=== PATIENT | male | born 1975 | race Caucasian/White ===

== ENCOUNTER 2019-03-08 07:13 | Emergency (ER) | payer BC, SELFPAY ==
[2019-03-08 07:16] VITALS: BP 163/96; PULSE 79; RESP 14; TEMP 36.2; O2SAT 97
--- NOTE | 2019-03-08 07:33 | W.ED.GENAD ---
Discharge Plan Disposition Patient Disposition: HOME Discharge Details Chief Complaint: EyeProblem Clinical Impression: Corneal abrasion, left Primary Care Provider: Gil Mendoza ED Provider: Gume Sy Home Meds and New Rx's Prescriptions: New erythromycin 5 mg/gram (0.5 %) ointment 0.5 inch OP Q4H Qty: 3.5 RF: 0 Discharge Instructions Instructions: Corneal Abrasion (ED) Additional Instructions: Please contact your eye care transition manager to arrange follow-up. Call today. Return to the ER for any worsening or new concerning symptoms. Referrals: [facility] [Outside] Discharge Data Discharge Date/Time-TO BE ENTERED AT DEPARTURE: 03/08/19 08:20 Medical Decision Making 43-year-old male here with sensation of foreign body left eye. Recently itching his eye with seasonal allergies. Patient with significant discomfort on arrival. Tetracaine applied to left eye and patient noted to have complete resolution of discomfort. Visual acuity normal. Flourescein stain applied and cornea examined with Clarke lamp - area of uptake noted 1:00 concerning for corneal abrasion. Plan to treat with erythromycin ointment and follow-up with optho. Advised call today to arrange timely follow-up tomorrow. HPI General Mode of arrival: ambulatory. Date/Time Provider Initiated Documentation: 03/08/19 07:23. Limitations to Documentation: no limitations. Information obtained by: patient. HPI Narrative: 43-year-old male presents with chief complaint of sensation of foreign body in his left eye that started last night. Patient has significant discomfort. Worse when he moves his eye around. No associated visual changes. Patient notes seasonal allergies and itching his eyes recently. Patient notes that he does not wear contact lenses. No recent metal grinding. Related Data Home Medications Medication Instructions Recorded Confirmed erythromycin 0.5 inch OP Q4H #3.5 gm 03/08/19 Previous Rx's Medication Instructions Recorded erythromycin 0.5 inch OP Q4H #3.5 gm 03/08/19 Allergies Allergy/AdvReac Type Severity Reaction Status Date / Time No Known Allergies Allergy Unverified 03/08/19 07:18 General Stated Complaint: EyeProblem SAJAN: 4 Review of Systems Constitutional Denies fever(s) and Denies headache(s) Eyes Reports as per HPI ENT Denies headache(s) Neurologic Denies headache(s) Allergic/Immunologic Reports as per HPI [facility] Social History Smoking/Tobacco Use Status: Never Alcohol Intake: current Alcohol Intake frequency: holidays/special occasions only Drug use: Never Substance use type: does not use Do you feel safe at home: Yes Do you feel safe in your relationship?: Yes Exam Const General: cooperative, healthy appearing and uncomfortable Eyes Periorbital: periorbital findings normal Eyelids: eyelids normal Conjunctivae: conjunctival abnormality bilaterally conjunctival injection (mild); without discharge Sclera: sclerae normal Pupils: PERRL EOM: EOM intact bilaterally Neck Neck: no lymphadenopathy noted Neuro General: alert and awake Course Vital Signs Temperature 36.2 C L 03/08/19 07:16 Pulse 79 03/08/19 07:16 Respiratory Rate 14 03/08/19 07:16 Blood Pressure 163/96 H 03/08/19 07:16 Pulse Oximetry 97 03/08/19 07:16 Temperature 36.2 C L 03/08/19 07:16 Pulse 79 03/08/19 07:16 Respiratory Rate 14 03/08/19 07:16 Respiratory Effort Non-Labored 03/08/19 07:17 Blood Pressure 163/96 H 03/08/19 07:16 Blood Pressure Position Sitting 03/08/19 07:16 Pulse Oximetry 97 03/08/19 07:16 Oxygen Delivery Method Room Air 03/08/19 07:16 Oxygen Flow Rate 0 03/08/19 07:16 Pain Level 5 03/08/19 07:16
--- NOTE | 2019-03-08 07:40 | ED.GENADUL_ITS ---
Discharge Plan Disposition Patient Disposition: HOME Discharge Details Chief Complaint: EyeProblem Clinical Impression: Corneal abrasion, left Primary Care Provider: Gil Mendoza ED Provider: Gume Sy Home Meds and New Rx's Prescriptions: New erythromycin 5 mg/gram (0.5 %) ointment 0.5 inch OP Q4H Qty: 3.5 RF: 0 Discharge Instructions Instructions: Corneal Abrasion (ED) Additional Instructions: Please contact your eye skin care instructor to arrange follow-up. Call today. Return to the ER for any worsening or new concerning symptoms. Referrals: [facility] [Outside] Discharge Data Discharge Date/Time-TO BE ENTERED AT DEPARTURE: 03/08/19 08:20 Medical Decision Making 43-year-old male here with sensation of foreign body left eye. Recently itching his eye with seasonal allergies. Patient with significant discomfort on arrival. Tetracaine applied to left eye and patient noted to have complete resolution of discomfort. Visual acuity normal. Flourescein stain applied and cornea examined with Clarke lamp - area of uptake noted 1:00 concerning for corneal abrasion. Plan to treat with erythromycin ointment and follow-up with optho. Advised call today to arrange timely follow- up tomorrow. HPI General Mode of arrival: ambulatory . Date/Time Provider Initiated Documentation: 03/08/19 07:23 . Limitations to Documentation: no limitations . Information obtained by: patient . HPI Narrative: 43-year-old male presents with chief complaint of sensation of foreign body in his left eye that started last night. Patient has significant discomfort. Worse when he moves his eye around. No associated visual changes. Patient notes seasonal allergies and itching his eyes recently. Patient notes that he does not wear contact lenses. No recent metal grinding. Related Data Home Medications Medication Instructions Recorded Confirmed erythromycin 0.5 inch OP Q4H #3.5 gm 03/08/19 Previous Rx's Medication Instructions Recorded erythromycin 0.5 inch OP Q4H #3.5 gm 03/08/19 Allergies Allergy/AdvReac Type Severity Reaction Status Date / Time No Known Allergies Allergy Unverified 03/08/19 07:18 General Stated Complaint: EyeProblem SAJAN: 4 Review of Systems Constitutional Denies fever(s) and Denies headache(s) Eyes Reports as per HPI ENT Denies headache(s) Neurologic Denies headache(s) Allergic/Immunologic Reports as per HPI [facility] Social History Smoking/Tobacco Use Status: Never Alcohol Intake: current Alcohol Intake frequency: holidays/special occasions only Drug use: Never Substance use type: does not use Do you feel safe at home: Yes Do you feel safe in your relationship?: Yes Exam Const General: cooperative, healthy appearing and uncomfortable Eyes Periorbital: periorbital findings normal Eyelids: eyelids normal Conjunctivae: conjunctival abnormality bilaterally conjunctival injection (mild); without discharge Sclera: sclerae normal Pupils: PERRL EOM: EOM intact bilaterally Neck Neck: no lymphadenopathy noted Neuro General: alert and awake Course Vital Signs Temperature 36.2 C L 03/08/19 07:16 Pulse 79 03/08/19 07:16 Respiratory Rate 14 03/08/19 07:16 Blood Pressure 163/96 H 03/08/19 07:16 Pulse Oximetry 97 03/08/19 07:16 Temperature 36.2 C L 03/08/19 07:16 Pulse 79 03/08/19 07:16 Respiratory Rate 14 03/08/19 07:16 Respiratory Effort Non-Labored 03/08/19 07:17 Blood Pressure 163/96 H 03/08/19 07:16 Blood Pressure Position Sitting 03/08/19 07:16 Pulse Oximetry 97 03/08/19 07:16 Oxygen Delivery Method Room Air 03/08/19 07:16 Oxygen Flow Rate 0 03/08/19 07:16 Pain Level 5 03/08/19 07:16
[2019-03-08] MEDS: Fluorescein STRIPS 100/BOX 1 MG (07:50)
[2019-03-08] MEDS: Balanced Salt Solution 15 ML BTL (07:50)
[2019-03-08] MEDS: Tetracaine 0.5% 4 ML BTL (07:50)
[2019-03-08] MEDS: Erythromycin Ophth Oint 3.5 GM TUBE OD (08:24)
== END 2019-03-08 08:20 | disposition home or self-care (01) ==
PROVIDERS: Emergency Provider Student in an Organized Health Care Education/Training Program; PCP Internal Medicine
DX: S05.02XA Injury of conjunctiva and corneal abrasion without foreign body, left eye, initial encounter (principal); X58.XXXA Exposure to other specified factors, initial encounter
CPT/HCPCS: 99283

== ENCOUNTER 2023-07-31 14:18 | Emergency (ER) | payer BC, SELFPAY ==
[2023-07-31 14:20] VITALS: BP 138/100; PULSE 101; RESP 18; TEMP 36.2; O2SAT 97
--- NOTE | 2023-07-31 14:30 | DI.CT_ITS ---
Exam(s) CT NECK W EXAM: CT NECK W CLINICAL HISTORY: fever 104 x6 days, JOEL R. TECHNIQUE: Imaging Protocol: Axial computed tomography images with coronal and sagittal reformatted images were created and reviewed. CONTRAST MATERIAL: Intravenous: Omnipaque 350 Contrast volume:100mL COMPARISON: No exams were available for comparison FINDINGS: There is artifact from the patient's dental amalgam. Orbits and orbital soft tissues: Within normal limits. Visualized paranasal sinuses: There is a retention cyst in a posterior left ethmoid air cell. The r emaining visualized paranasal sinuses and mastoid air cells are clear. Nasopharynx: Within normal limits. Oropharynx: Within normal limits. Hypopharynx: There is symmetric enlargement of the pharyngeal tonsils. Calcifications are noted georgie aterally. No abscess is identified. Larynx: Within normal limits. Retropharyngeal space: Within normal limits. Parotids/submandibular: Within normal limits. Thyroid gland: Within normal limits. Lymphadenopathy: There is a 2.2 x 2.1 cm soft tissue mass adjacent to and slightly posterior to the right submandibular gland corresponding to the palpable abnormality. There are smaller lymph nodes s een in the submandibular region and right supraclavicular region. The next largest lymph node is see n in the right supraclavicular region and measures 1.4 x 1.2 cm. There is mediastinal and hilar nasrin opathy present. There is a 3 x 2.4 cm anterior lymph node. There is a 2.0 x 1.7 cm pretracheal lymp h node. Trachea: Within normal limits. Lung apices: Within normal limits. Bones: Within normal limits for the patient's age. Carotids/Jugular: Within normal limits. Soft tissues: Within normal limits. IMPRESSION: Cervical and mediastinal adenopathy of uncertain etiology. CT scan of the chest should be considered for further evaluation. Infection/inflammation cannot be entirely excluded. Neoplastic process doc uld also be considered. RADIATION DOSE DELIVERED: 514.21mGy.cm Total DLP 514.21mGy.cm Total DLP DATA REPOSITORY: All CT scans at this facility are submitted to the National Radiology Data Registry (NRDR) Dose Index Registry (DIR) with the [employer] ([employer]). RADIATION OPTIMIZATION: All CT scans at this facility use at least one of these dose optimization te chniques: automated exposure control; mA and/or kV adjustment per patient size (includes targeted exa ms where dose is matched to clinical indication); or iterative reconstruction.
--- NOTE | 2023-07-31 14:30 | DI.RAD_ITS ---
Exam(s) XR CHEST 2V PA LATERAL EXAM: XR CHEST 2V PA LATERAL CLINICAL HISTORY: fever 104, JOEL TECHNIQUE: 2D digital imaging was performed of the chest. Two images were obtained. PA and lateral views were obtained. COMPARISON: CT CT NECK W from 07/31/2023 FINDINGS: MEDIASTINUM: There is prominence of the left hilum. There is also prominence of the right paratrache al soft tissues. This is suggestive of adenopathy as partially identified on the CT scan of the neck . HEART: Normal. PULMONARY VASCULATURE: Normal. LUNGS: Clear. PLEURAL SPACE: No pleural effusion or pneumothorax. BONE:Within normal limits for the patient's age. OTHER FINDINGS:Normal. IMPRESSION: Findings suggesting mediastinal adenopathy. A CT scan of the chest should be considered for further evaluation. Unexpected findings DATA REPOSITORY: RADIATION DOSE DELIVERED:
[2023-07-31 14:33] VITALS: BP 138/89; PULSE 97; RESP 18; TEMP 37.1; O2SAT 97
--- NOTE | 2023-07-31 14:45 | W.ED.GENAD ---
Discharge Plan Disposition Patient Disposition: Home Condition: Stable Discharge Details Clinical Impression: Strep throat Primary Care Provider: Gil Mendoza ED Provider: Zara Sales Home Meds and New Rx's Prescriptions: New penicillin V potassium 500 mg tablet 500 mg PO QID Qty: 40 0RF Discharge Instructions Instructions: Strep Throat (ED) Additional Instructions: Take the penicillin 500 mg 4 times per day for the next 10 days. Try heat on the swollen glands as this may help. Ibuprofen 600 mg 4 times per day will help with discomfort and swelling. You may alternate the ibuprofen and Tylenol 650 mg every 6 hours as needed for both pain and fever. Return to ED for difficulty swallowing, worsening of the swelling, sore throat, any other concerns. Recheck with your primary care doc if no better in 48 hours. Medical Decision Making Patient and his partner were updated on all of his test results. This appears to be strep throat. He will continue to apply heat to the affected area and take Tylenol and ibuprofen as needed for pain, inflammation, and fever. Did give him penicillin VK 500 mg 4 times per day. If he is no better by Wednesday than he will see primary care. He will return to the ED for difficulty breathing, inability to swallow, any other concerns. Imaging Data Radiologic Study: Attestation: I personally reviewed and interpreted this imaging study as follows: (NAD) Imaging: X-Ray (CXR: NAD) and CT Scan (CT neck: JOEL right side. No septic thrombophlebitis or Lemierre's syndrome) Lab Data Lab results reviewed: Yes I reviewed the patient's lab results. Lab results narrative: WBC 13.6, 86P, 4L, glu 108, Na 134; monospot and remainder of labs normal. Strep screen was positive. HPI General Date/Time Provider Initiated Documentation: 07/31/23 14:23. HPI Narrative: This 47-year-old male patient presents with a chief complaint of fever to 104 degrees and lymphadenopathy in his left neck. Patient states that he flew back from [place] a week ago yesterday. 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 He did have some trouble equalizing on the airplane and his ears were plugged up for 24 hours or so. His right ear was/is a little bit sore. They did unplug the next day and he was able to hear again. He has a history of PE tubes when he was a little kid. He states that this past Wednesday, 6 days ago, he went for a hike. He felt he did not have any energy and vomited a few times. This is quite unusual for him. The next day he awoke with a fever of 104 degrees and swollen lymph glands on the right-hand side of his neck. He stayed home from work for a couple of days and then went to work on Wednesday. He states he took a COVID test and it was negative. He has been taking analgesics for the fever. He denies a sore throat but says he can feel it on the right-hand side when he swallows. He has no URI symptoms. There is no cough, chest pain, or shortness of breath. The nausea is off-and-on but he denies abdominal pain or diarrhea. He has no dysuria. He has no headache, weakness, or dizziness. They have a dog at home but no cats or birds. He does not work in a half-way. Related Data Home Medications Medication Instructions Recorded Confirmed penicillin V potassium 500 mg 500 mg PO QID #40 tabs 07/31/23 tablet Previous Rx's Medication Instructions Recorded penicillin V potassium 500 mg 500 mg PO QID #40 tabs 07/31/23 tablet Allergies Allergy/AdvReac Type Severity Reaction Status Date / Time No Known Allergies Allergy Unverified 07/31/23 14:24 General Stated Complaint: Cellulitis SAJAN: 4 Review of Systems Constitutional Constitutional: Reports chills, Reports fever(s), Denies headache(s) and Denies weakness Eyes Eyes: Denies diplopia and Reports other (no redness) ENT Ears, Nose, Mouth, and Throat: Reports otalgia ( right), Denies headache(s), Denies nasal congestion, Denies nasal discharge, Reports neck pain ( right) and Denies sore throat Comments: Has right sided lymphadenopathy anterior cervical chain Cardiovascular Cardiovascular: Denies chest pain, Denies palpitations and Denies dyspnea Respiratory Respiratory: Denies cough and Denies dyspnea Gastrointestinal Gastrointestinal: Denies abdominal pain, Denies diarrhea, Denies nausea and Denies vomiting Comments: No splenomegaly Genitourinary Genitourinary: Denies difficulty urinating and Denies dysuria Musculoskeletal Musculoskeletal: Denies myalgias, Denies muscle weakness, Reports neck pain ( right), Denies numbness and Reports other (edema) Comments: No axillary or inguinal nodes Integumentary/Breasts Skin/Breast: Denies change in pigmentation and Denies rash Neurologic Neurologic: Denies headache(s), Denies numbness and Denies weakness Endocrine Endocrine: Denies palpitations PFSH All Active Problems (Updated 07/31/23 @ 16:26 by Zara Sales MD) Strep throat (Acute) Social History Smoking/Tobacco Use Status: Never Smoking risk assessment performed?: Yes Alcohol Intake: current Alcohol Intake frequency: holidays/special occasions only Drug use: Never Substance use type: does not use Do you feel safe at home: Yes Do you feel safe in your relationship?: Yes Exam Const General: no acute distress, well developed, well groomed and not in acute distress Nutritional Appearance: well nourished Orientation: alert and oriented x3 Other: Warm, diaphoretic and sweating HENMT Head: normocephalic and atraumatic Ears: external ears normal, TM's normal bilaterally and no periauricular adenopathy General nose exam: external nose normal and nares normal Face and sinus: normal facial exam, sinuses nontender, no erythema and no edema Mouth: oropharynx normal, moist mucous membranes, no muffled voice and oral mucosa abnormal Teeth and gingiva: abnormal tooth or associated gingiva (fx'd tooth R but no dental pain) Throat: uvula midline, no peritonsillar masses and posterior oropharynx abnormal (large tonsils, some erythema) Eyes Conjunctivae: conjunctivae normal Neck Neck: full ROM, supple and lymphadenopathy (visible and palpable anterior cervical chain R, no supraclavic JOEL) Lymphatic: lymphadenopathy (as noted) Chest Chest: normal inspection of the chest Other: no axillary JOEL Resp Effort & Inspection: normal respiratory effort Auscultation: clear to auscultation bilaterally Cardio Rate: regular rate Rhythm: regular rhythm Heart Sounds: no murmurs and no rubs GI Inspection: normal to inspection Palpation: soft, nontender and other (non distended) Auscultation: normal bowel sounds Skin General skin exam: no rashes or lesions noted and other (pink, warm, diaphoretic) Neuro General: patient alert, patient awake and patient oriented x3 Speech: speech normal Motor: other (BROWN) Sensory Exam: no sensory deficits noted Extrem General: normal to inspection, full ROM and pedal edema present Psych Mental Status: mental status grossly normal Speech and Movement: speech and movement normal Affect: normal affect Course Vital Signs Vital signs: Vital Signs Temperature 36.2 C L 07/31/23 14:20 Pulse 101 H 07/31/23 14:20 Respiratory Rate 18 07/31/23 14:20 Blood Pressure 138/100 H 07/31/23 14:20 Pulse Oximetry 97 07/31/23 14:20 Temperature 37.1 C 07/31/23 14:33 Temperature Source Oral 07/31/23 14:33 Pulse 97 H 07/31/23 14:33 Respiratory Rate 18 07/31/23 14:33 Respiratory Effort Normal 07/31/23 14:24 Blood Pressure 138/89 07/31/23 14:33 Blood Pressure Position Sitting 07/31/23 14:33 Pulse Oximetry 97 07/31/23 14:33 Oxygen Delivery Method Room Air 07/31/23 14:33 Oxygen Flow Rate 0 07/31/23 14:20 Pain Level 0 07/31/23 14:33 Lab/Test Results Lab/Test Results: 07/31/23 14:40 Blood Blood Culture - Pending 07/31/23 14:40 Blood Blood Culture - Pending
[2023-07-31 14:58] LABS: BE (Venous) 3 mmol/L (-2-3); HCO3 (Venous) 28 mmol/L (23-28); O2 Sat (Venous) 64 %; TCO2 (Venous) 24 mmol/L (24-29); pCO2 (Venous) 43 mmHg (41-51); pH (Venous) 7.41 (7.31-7.41); pO2 (Venous) 32 mmHg
[2023-07-31 15:01] LABS: Abs Immature Grans 0.35 10^3/uL (0.0-0.06); Absolute Basophil Count 0.07 10^3/uL (0.0-0.2); Absolute Lymphocyte Count 0.53 10^3/uL (1.2-3.4); Absolute Monocyte Count 0.95 10^3/uL (0.1-0.8); Basophils % 0.5; Eosinophils % 0.1; HCT 44.7 % (40.0-50.0); HGB 15.2 g/dL (13.5-17.5); Immature Grans % 2.6; Lymphocytes % 3.9; MCH 30.3 pg (27.0-33.0); MCV 89 fL (80-95); MPV 8.7 fL (8.0-11.0); Neutrophils % 85.9; Platelet Count 274 10^3/uL (130-400); RBC 5.02 10^6/uL (4.36-5.78); RDW 12.3 % (11.8-14.1); RDW-SD 40.3 fL; WBC 13.56 10^3/uL (4.4-10.8)
[2023-07-31 15:02] LABS: Absolute Eosinophil Count 0.01 10^3/uL (0.0-0.7); Absolute Neutrophil Count 11.65 10^3/uL (1.2-6.7)
[2023-07-31] MEDS: Normal Saline 1,000 ML 1000 ML IV (15:05)
[2023-07-31 15:10] LABS: Mono Screening Negative (Negative)
[2023-07-31 15:16] LABS: ALT 29 U/L (16-63); AST 15 U/L (15-37); Albumin 3.4 g/dL (3.4-5.0); Alkaline Phosphatase 99 U/L (46-116); Anion Gap 9.4 mmol/L (3-11); BUN 13 mg/dL (7-18); Bilirubin, Total 0.5 mg/dL (0.2-1.0); C-Reactive Protein 21.75 mg/dL (0.0-0.3); CO2 26.6 mmol/L (21.0-32.0); CREATININE 1.1 mg/dL (0.70-1.30); Calcium 9.4 mg/dL (8.5-10.1); Chloride 98 mmol/L (98-107); Estimated GFR 83.32 (mL/min/1.73m2); Glucose 108 mg/dL (74-106); Magnesium 1.8 mg/dL (1.8-2.4); Potassium 3.5 mmol/L (3.5-5.1); Sodium 134 mmol/L (136-145); Total Protein 8.1 g/dL (6.4-8.2)
[2023-07-31] MEDS: Omnipaque 350 MG/ML 100 ML BTL IJ (15:27)
[2023-07-31] MEDS: Normal Saline - Diluent 50 ML VIAL IJ (15:28)
--- NOTE | 2023-07-31 15:39 | DI.VRAD_ITS ---
PROCEDURE INFORMATION: Exam: XR Chest Exam date and time: 07/31/2023 3:20 PM Age: 47 years old Clinical indication: Patient HX: Fever 104 x6 days; Rolf TECHNIQUE: Imaging protocol: Radiologic exam of the chest. Views: 2 views. COMPARISON: CT NECK W 07/31/2023 3:08 PM FINDINGS: Lungs: Unremarkable. No consolidation. Pleural spaces: Unremarkable. No pleural effusion. No pneumothorax. Heart/Mediastinum: Unremarkable. No cardiomegaly. Bones/joints: Unremarkable. IMPRESSION: No acute findings Dictated and Authenticated by: Jillian Meyers MD. Ordering:FABIENNE Zuñiga MD
--- NOTE | 2023-07-31 15:45 | DI.VRAD_ITS ---
PROCEDURE INFORMATION: Exam: CT Neck With Contrast Exam date and time: 07/31/2023 3:08 PM Age: 47 years old Clinical indication: Enlarged lymph nodes; Localized; Patient HX: Fever 104 x6 days; Rolf R side TECHNIQUE: Imaging protocol: Computed tomography of the neck with contrast. COMPARISON: No relevant prior studies available. FINDINGS: Brain: Visualized aspect of the brain is unremarkable Orbital cavities: No significant orbital abnormality Mastoid air cells: No significant mastoid or middle ear opacification Paranasal sinuses: Retention cyst in the posterior left ethmoid air cell. No other significant paranasal sinus opacification or fluid level Pharynx: There is symmetric enlargement of the pharyngeal tonsils. Concretions are noted bilaterally. There is no evidence of a discrete or drainable collection or abscess. Larynx: The epiglottis, larynx are unremarkable. Prevertebral and retropharyngeal spaces: No significant retropharyngeal abnormality identified. Salivary glands: Submandibular glands, salivary glands are unremarkable Thyroid: Thyroid gland is mildly enlarged. No discrete or dominant nodule Lymph nodes: The exam was not tailored to evaluate the chest but there are enlarged mediastinal and hilar nodes. Largest visualized node is pre-vascular in location and measures approximately 3 cm in maximum diameter. There is cervical adenopathy, greater on the right than the left. The largest visualized right cervical node is located at level 2 posterior, inferior to the right submandibular gland and measures approximately 3.6 x 2.1 cm as measured on sagittal reformatted image 59. There is a right internal jugular node measuring approximately 2.7 cm SI 1.8 cm AP. There are multiple additional smaller bilateral cervical nodes. Trachea: No significant tracheal narrowing Lungs: No significant airspace consolidation at the lung apices Bones/joints: Straightening of the cervical lordosis. Mild cervical spondylosis, disc disease. No acute bony abnormality Soft tissues: No significant subcutaneous abnormality. Aside from the adenopathy there is no evidence of a discrete soft tissue mass in the neck. IMPRESSION: Cervical and mediastinal adenopathy identified. Cervical adenopathy is greater on the right than the left. No definite cause/etiology is identified on the submitted images. Clinical correlation recommended to exclude blood dyscrasia. Dictated and Authenticated by: Jillian Meyers MD. Ordering:FABIENNE Zuñiga MD
[2023-07-31] MEDS: Penicillin V POTASSIUM 500 MG TAB PO (16:31)
[2023-07-31] MEDS: Ibuprofen 600 MG TAB PO (16:43)
--- NOTE | 2023-07-31 18:06 | NUR.NOTE ---
Pt referred to Primary Care due to Strep Throat and Lymphadenopathy for Wednesday
== END 2023-07-31 16:44 | disposition home or self-care (01) ==
PROVIDERS: Emergency Provider Emergency Medicine; PCP Internal Medicine
DX: J02.0 Streptococcal pharyngitis (principal); R59.1 Generalized enlarged lymph nodes
CPT/HCPCS: 36415; 70491; 80053; 82805; 87040; 87880; 96360; 99285; 71046; 83735; 85025; 86140; 86308; 99284; J3490